=== PATIENT | male | born 2000 | race Caucasian/White ===

== ENCOUNTER 2021-06-12 14:48 | Emergency (ER) | payer SELFPAY ==
[~2021-06-12] VITALS: Ht 160 cm; Wt 59.0 kg
[~2021-06-12 14:48] MED LIST: [UNRECOGNIZED DRUG - CODE] PO
[2021-06-12 15:34] VITALS: BP 131/92
--- NOTE | 2021-06-12 15:56 | PHYS DOC ---
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 Patient reports at rest, he has no pain but when he attempts to ambulate his pain is 10/10. Patient states that his left foot and thigh have been intermittently swollen since February. Patient denies erythema, redness, trauma or other injury. He used to live in [place], but since he has started having this problem, he moved back to the area to live with his mother. He was diagnosed with cellulitis while in [place], and was provided Keflex prescription that he never filled. He has no other complaints or associated symptoms. Review of Systems: Review of Systems: ROS negative or noncontributory except as mentioned in HPI. Allergies: Allergies: Allergies Coded Allergies Type Severity Reaction Last Updated Verified No Known Drug Allergies 12/20/14 No Physical Exam: PE: Constitutional: Well developed, well nourished, no acute distress, non-toxic appearance. HENT: Normocephalic, atraumatic, bilateral external ears normal, nose normal. Eyes: EOMI, conjunctiva normal, no discharge. Neck: Normal range of motion, no stridor. Skin: Warm, dry, no erythema, no rash. Extremities: Left foot swollen from calcaneus extending distally without erythema or open wound, minimal tenderness, no cyanosis, no clubbing, ROM intact. Extremities otherwise unremarkable. Neurologic: Alert and oriented x4, motor and sensory function grossly intact, no focal deficits noted. Current Patient Data: Vital Signs: Vital Signs Date Time Temp Pulse Resp B/P (MAP) Pulse Ox O2 Delivery O2 Flow Rate FiO2 06/12/21 15:34 98.2 93 16 131/92 (105) 94 Room Air Radiology/Procedures: Radiology/Procedures: PROCEDURE: VENOUS LOWER EXTREMITY LEFT EXAM: Left lower extremity venous Doppler sonogram. HISTORY: Pain and swelling. TECHNIQUE: Feliz scale and color Doppler sonographic evaluation of the left lower extremity veins with spectral waveform analysis was performed. FINDINGS: There is normal color flow, normal compressibility and there are normal spectral waveforms in the common femoral, superficial femoral, popliteal, posterior tibial and greater saphenous veins. IMPRESSION: No Doppler evidence of lower extremity deep venous thrombosis. Electronically signed by: Laureen Berrios MD (06/12/2021 4:23 PM) [id number] PROCEDURE: FOOT LEFT 3V Exam: Left foot 3 views INDICATION: Unilateral swelling, pain on weightbearing TECHNIQUE: Frontal, lateral and oblique views of the left foot Comparisons: None FINDINGS: Diffuse soft tissue swelling at the forefoot. Mild osteopenia. No acute or healed fractures. Joint spaces are well-maintained. IMPRESSION: Soft tissue swelling at the forefoot without underlying osseous abnormality identified. Electronically signed by: Yashira Angelo MD (06/12/2021 4:50 PM) ESSIE Heart Score: C/O Chest Pain: No Course & Med Decision Making: Course & Med Decision Making Pertinent Labs and Imaging studies reviewed. (See chart for details) Patient is a 21-year-old male who presents with left foot swelling and pain on weightbearing. Work-up today will include lower extremity venous ultrasound as well as foot x-ray. Imaging unremarkable. Patient was counseled on supportive treatment measures for pain and swelling including RICE therapy. Patient was instructed to follow- up with primary care and or orthopedics for further evaluation and management. All of the patient and his mother's questions were answered. Mom rarely allows patient to speak for himself and is somewhat agitated to find out that we did not find the source of the patient's pain. They understand and are agreeable to discharge plan. Betzy Disclaimer: Betzy Disclaimer: This electronic medical record was generated, in whole or in part, using a voice recognition dictation system. Departure Departure: Impression: Primary Impression: Left foot pain Additional Impression: History of Hirschsprung's disease Disposition: HOME / SELF CARE / HOMELESS Condition: STABLE Referrals: PCP,NO (PCP) TOPHER TORRES Jr. DO Patient Instructions: RICE - Routine Care for Injuries, [id number] Additional Instructions: EMERGENCY DEPARTMENT GENERAL DISCHARGE INSTRUCTIONS Thank you for coming to [facility] (ED) today and trusting us with you care. We trust that you had a positive experience in our Emergency Department. If you wish to speak to the department management, you may call the director at [phone]. YOUR FOLLOW UP INSTRUCTIONS ARE FOLLOWS: 1. Follow up with your primary care doctor. If you do not have a primary doctor, please ask for a resource list of physicians or clinics that may be able to assist you with follow up care. 2. The emergency provider has interpreted your imaging studies, if any were ordered. The radiology client retention specialist also reviewed them. If there is a change in the findings, you will be notified in 48 hours when at all possible. 3. If a lab test or culture has been done, your results will be reviewed and you will be notified if you need a change in treatment. 4. Follow instructions verbalized to you and refer to the printouts if needed. ADDITIONAL INSTRUCTIONS AND INFORMATION: 1. Your care today has been supervised by a physician who is specially trained in emergency care. Many problems require more than one evaluation for a complete diagnosis and treatment. We recommend that you schedule your follow up appointment as recommended to ensure complete treatment of you illness or injury. If you are unable to obtain follow up care and continue to have a problem, or if your condition worsens, we recommend that you return to the ED. 2. We are not able to safely determine your condition over the phone nor are we able to give sound medical advice over the phone. For these safety reasons, if you call for medical advice we will ask you to come to the ED for further evaluation. 3. If you have any questions regarding these discharge instructions please call the ED at [phone]. SAFETY INFORMATION: In the interest of safety, wellness, and injury prevention; we encourage you to wear your seat belt, if you smoke; quite smoking, and we encourage family to use a protective helmet for bicycling and other sporting events that present an increased risk for head injury. IF YOUR SYMPTOMS WORSEN OR NEW SYMPTOMS DEVELOP, OR YOU HAVE CONCERNS ABOUT YOUR CONDITION; OR IF YOUR CONDITION WORSENS WHILE YOU ARE WAITING FOR YOUR FOLLOW UP APPOINTMENT; EITHER CONTACT YOUR PRIMARY CARE DOCTOR, THE PHYSICIAN WHOSE NAME AND NUMBER YOU WERE GIVEN, OR RETURN TO THE ED IMMEDIATELY. ALEXIS CASTILLO Jun 12, 2021 15:56
[2021-06-12] MEDS: IBUPROFEN 600 MG TABLET. PO ONE (16:15)
--- NOTE | 2021-06-12 16:25 | RAD ---
EXAM: Left lower extremity venous Doppler sonogram. HISTORY: Pain and swelling. TECHNIQUE: Feliz scale and color Doppler sonographic evaluation of the left lower extremity veins with spectral waveform analysis was performed. FINDINGS: There is normal color flow, normal compressibility and there are normal spectral waveforms in the common femoral, superficial femoral, popliteal, posterior tibial and greater saphenous veins. IMPRESSION: No Doppler evidence of lower extremity deep venous thrombosis. Electronically signed by: Laureen Berrios MD (06/12/2021 4:23 PM) [id number]
--- NOTE | 2021-06-12 16:52 | RAD ---
Exam: Left foot 3 views INDICATION: Unilateral swelling, pain on weightbearing TECHNIQUE: Frontal, lateral and oblique views of the left foot Comparisons: None FINDINGS: Diffuse soft tissue swelling at the forefoot. Mild osteopenia. No acute or healed fractures. Joint sp aces are well-maintained. IMPRESSION: Soft tissue swelling at the forefoot without underlying osseous abnormality identified. Electronically signed by: Yashira Angelo MD (06/12/2021 4:50 PM) ESSIE
== END 2021-06-12 17:27 | disposition home or self-care (01) ==
LOC: ER 14:48
DX: M79.672 Pain in left foot (principal); R22.42 Localized swelling, mass and lump, left lower limb; Q43.1 Hirschsprung's disease
CPT/HCPCS: 73630; 93971; 99284